=== PATIENT | female | born 1960 | race Caucasian/White ===

== ENCOUNTER 2021-05-30 13:52 | Emergency (ER) | payer OTHER ==
[2021-05-30 18:03] LABS: BASOPHIL 0.2 % (0-2); EOSINOPHIL 0.1 % (0-5); HCT 42.9 % (37.0-47.0); HGB 14.8 g/dl (12.5-16.0); LYMPHOCYTE 17.6 % (15-48); MCH 28.7 pg (25.0-31.0); MCHC 34.5 g/dL (32.0-36.0); MCV 83.3 fL (78.0-100.0); MONOCYTE 11.2 % (0-12); NEUTROPHIL 70.5 % (41-80); NRBC 0; PLT 250 K/uL (150-400); RBC 5.15 M/uL (4.20-5.40); RDW 12.6 % (11.5-14.0); WBC 8.6 K/uL (4.0-10.5)
[2021-05-30 18:22] LABS: ALBUMIN 3.5 g/dL (3.4-5.0); BILIRUBIN - TOTAL 0.9 mg/dL (0.2-1.0); CREATININE 0.7 mg/dL (0.51-0.95); GLOBULIN (CALCULATION) 3.3 g/dL; POTASSIUM 3.1 mmol/L (3.5-5.1); TOTAL PROTEIN 6.8 g/dL (6.4-8.2)
== END 2021-05-30 18:55 | disposition home or self-care (01) ==
LOC: FER 13:52
PROVIDERS: Physician Assistant
DX: U07.1 COVID-19 (principal); E87.6 Hypokalemia; E11.9 Type 2 diabetes mellitus without complications; I10 Essential (primary) hypertension
CPT/HCPCS: 36415; 71045; 80053; 85025; J7030